=== PATIENT | male | born 1965 | race Caucasian/White ===

== ENCOUNTER 2017-07-14 07:19 | Day surgery (SDC) | payer OTHER ==
[~2017-07-14] VITALS: Ht 172.7 cm; Wt 68.0 kg
[~2017-07-14 07:19] MED LIST: ADVIL200 MG PO; OMEPRAZOLE20 MG PO; TYLENOL325 MG PO
[2017-07-14] MEDS ORDERED: DUPIXENT300 MG/2 M SUB-Q (07:39)
--- NOTE | 2017-07-14 10:44 | NUR ---
07/14/17 1044 Dalila Deleon 1040 PATIENT ARRIVES TO PACU AWAKE, ALERT AND ORIENTED X3. RESP EVEN AND UNLABORED, NC AT 3 LITERS. PATIENT DENIES PAIN OR NAUSEA.
--- NOTE | 2017-07-15 13:21 | OR ---
[facility] [address] [place], [place] [address] Signed DATE OF OPERATION: 07/14/2017 SURGEON: Dereck Garay MD PREOPERATIVE DIAGNOSIS: Colon screening. POSTOPERATIVE DIAGNOSIS: Sigmoid diverticulosis. No evidence of polyps. PROCEDURE: Total colonoscopy of the cecum. ANESTHESIA: Intravenous sedation; fentanyl 100 mcg, Versed 4 mg. INDICATION: This 52-year-old white man has never undergone colonoscopy in the past and is considered for screening colonoscopy at this time. He has no symptoms of bleeding, diarrhea, or constipation. No family history of colon cancer that he is aware of. He understands risks of bleeding, infection, and perforation related to colonoscopy and wished to proceed. FINDINGS: The prep was excellent. Complete colonoscopy was undertaken of the cecum without question. There was scattered diverticula of the sigmoid, but no other findings of concern, particularly no evidence of polyps. DESCRIPTION OF PROCEDURE: The patient was brought to the endoscopy suite and placed in lateral decubitus position given intravenous sedation to the point of slurred speech and nystagmus. Digital rectal examination was normal. An Olympus video colonoscope was passed in the rectum and manipulated throughout the colon ultimately intubating the cecum itself. The ileocecal valve was normal. Scope was withdrawn from that point. Examination throughout showed no sign of abnormality until the sigmoid where a few scattered diverticula were noted. Retroflexed view in the rectum was normal as well. The scope was removed, and the patient was taken to recovery room in good condition. Electronically Signed By: DERECK GARAY MD 07/15/17 1321 PATIENT NAME: CHARLES ELIZONDO JR OPERATIVE REPORT DATE OF : 63 PHYSICIAN: DERECK GARAY MD REPORT #: [id number] REPORT IS CONFIDENTIAL AND NOT TO BE RELEASED WITHOUT AUTHORIZATION [address] [place], [place] [address] Signed CONCLUDING DIAGNOSIS: Minimal diverticular change of sigmoid. Otherwise normal. PLAN: Recommend repeat colonoscopy in 10 years and high-fiber diet. MD ACACIA Kate/COLBY /[id number] Electronically Signed By: DERECK GARAY MD 07/15/17 1321 PATIENT NAME: CHARLES ELIZONDO JR OPERATIVE REPORT DATE OF : 63 PHYSICIAN: DERECK GARAY MD REPORT #: [id number] REPORT IS CONFIDENTIAL AND NOT TO BE RELEASED WITHOUT AUTHORIZATION
== END 2017-07-14 11:05 | disposition home or self-care (01) ==
LOC: DS 07:19 → OPS 07:19 → DS 08:30 → OPS 08:30 → DS 04-13 08:30
PROVIDERS: Surgery
PROC: 0DJD8ZZ Inspection of Lower Intestinal Tract, Via Natural or Artificial Opening Endoscopic (ICD-10-PCS; principal; 2017-07-14 08:30)
DX: Z12.11 Encounter for screening for malignant neoplasm of colon (principal); K57.30 Diverticulosis of large intestine without perforation or abscess without bleeding; Z98.890 Other specified postprocedural states
CPT/HCPCS: 99153; G0500; J2250; J3010; J7120